=== PATIENT | male | born 1950 | race African-American/Black ===

== ENCOUNTER 2025-05-19 09:06 | Outpatient (CLI) | payer OTHER, MEDICARE, SELFPAY ==
--- NOTE | ~2025-05-19 | PE_ITS ---
EXAMINATION: PET_PETPSMAST_PT DATE: 05/19/2025 11:45 INDICATION: Prostate cancer TECHNIQUE: 3.469 mCi of Illucix Ga-68([id number]) was administered i.v. Low dose computed tomography (CT) images were acquired from the base of the brain to the base of the brain to the proximal thighs for attenuation correction and anatomic localization. Positron emission tomography (PET) images were acquired in the same distribution beginning 75 minutes after injection. Images including fused PET/CT images were reconstructed in axial, coronal, and sagittal planes. Automated exposure control technique was employed. The dose-length product was 1368.24mGy-cm. COMPARISON: None FINDINGS: Head/neck: Typical pattern of symmetric physiologic increased activity in the lacrimal, parotid and submandibular glands as well as along the mucosa of the nasal and oral cavities, pharynx and hypopharynx. No pathologically enlarged cervical lymphadenopathy or suspicious foci of increased uptake in the visualized head or neck. Chest: Mild respiratory motion and mild atelectasis at the bilateral lung bases. No suspicious pulmonary nodules, pneumonia, pulmonary edema or other pulmonary infiltrates or pleural effusion. Heart size is normal. No pericardial effusion. Thoracic aorta is normal in caliber. No pathologically enlarged thoracic lymphadenopathy. Abdomen/pelvis/proximal thighs: Physiologic renal accumulation and excretion of activity in the kidneys, bladder and along portions of ureters. Focal photopenic defect at the lower pole the left kidney suggesting an approximately 1 cm cyst which is difficult to clearly distinguish on the CT images due to mild streak artifact. Prostatomegaly measuring 4.6 x 4.2 cm. There is a large region of marked increased uptake occupying a significant portion of the cephalad half of the prostate with maximal SUV of 93 consistent with primary prostate cancer. Normal degree and slightly heterogenous pattern of increased uptake throughout the liver and spleen without radiologic correlate or dominant PSMA avid lesion. The gallbladder, pancreas and bilateral adrenal glands are normal. Moderate uptake scattered throughout the bowels with typical duodenal and proximal jejunal predominance and without radiologic correlate, also likely physiologic. Normal appendix. Moderate sigmoid and descending colon predominant diverticulosis without adjacent from trace stranding to suggest diverticulitis. No other abnormal foci of increased uptake or pathologically enlarged lymphadenopathy in the abdomen, pelvis or proximal thighs. Small fat-containing right inguinal hernia. Musculoskeletal: Moderate cervical and thoracic and severe lumbar spondylosis. No suspicious lytic, blastic or abnormally PSMA avid bone lesions. IMPRESSION: 1. Large region of marked increased activity in the enlarged prostate consistent with primary prostate cancer. No lesion suspicious for metastatic disease. Reviewed, dictated and finalized at location A. IMPRESSION: 1. Large region of marked increased activity in the enlarged prostate consisten t with primary prostate cancer. No lesion suspicious for metastatic disease.
--- OUTSIDE RECORDS SUMMARY | 2025-05-19 09:18 | XMS_ITS | Encounter Summary ---
Author Organization [facility] Facility Care Team Providers Care Optics Manufacturing Technician Name Role Phone Jhony Leslie MD Primary Care Provider [phone] Jennifer Gamboa Primary Care Provider + Encounter Details Date Type Department Care Team (Latest Contact Info) Description 08/23/2015 Orders Only [facility] ProviderChemo MD [address] [place] [id number] Social History Tobacco Use Types Packs/Day Years Used Date Smoking Tobacco: Never Assessed Sex and Gender Information Value Date Recorded Sex Assigned at Not on file Legal Sex Male 12:26 AM CODING COORDINATOR Gender Identity Not on file Sexual Orientation Not on file documented as of this encounter Plan of Treatment Not on file documented as of this encounter Procedures Procedure Name Priority Date/Time Associated Diagnosis Comments CARDIOLOGY REPORT 11/21/2016 12: 00 AM CODING COORDINATOR documented in this encounter Results * CARDIOLOGY REPORT (11/21/2016 12:00 AM CODING COORDINATOR) Anatomical Region Laterality Modality Other Narrative 11/21/2016 12:00 AM CODING COORDINATOR Ordered by an unspecified provider. Historical Provider [facility] Final Result documented in this encounter Visit Diagnoses Not on filedocumented in this encounter Care Teams Optics Manufacturing Technician Relationship Specialty Start Date End Date Jhony Leslie MD PCP - General 11/23/18 03/30/24 Jennifer Gamboa PA PCP - General Family Medicine 03/31/24 documented as of this encounter
--- OUTSIDE RECORDS SUMMARY | 2025-05-19 09:18 | XMS_ITS | Clinical Summary ---
Author Organization [facility] Address [address] [place] [address] Care Team Providers Care Data Processing Clerk Name Role Phone Jennifer Gamboa Primary Care Provider + Allergies No known active allergies Medications omega-3 fatty acids-fish oil 360-1,200 mg capsule 1,200 mg daily Active cholecalciferol (VITAMIN D-3) 5,000 unit capsule 1 capsule (5,000 Units total) Active ascorbic acid, vitamin C, 500 mg capsule 500 mg Active COQ10, LIPOSOMAL UBIQUINOL, ORAL 200 mg daily A ctive magnesium oxide 200 mg magnesium tablet,chewable 500 mg daily A ctive pen needle, diabetic 31 gauge x 5/16 needle Use to inject 1-4 times daily as directed. 300 each 4 5 Active amLODIPine-benaze priL (LOTREL) 10-40 mg per capsuleIndication s:Primary hypertension Take 1 capsule by mouth daily 90 capsule 1 5 Active dapagliflozin propanediol (Farxiga) 10 mg tabletIndications :Type 2 diabetes mellitus with hyperglycemia, with long-term current use of insulin (HCC) Take 1 tablet (10 mg total) by mouth daily 90 tablet 1 5 Active glimepiride (AMARYL) 4 mg tabletIndications :Type 2 diabetes mellitus with hyperglycemia, with long-term current use of insulin (HCC) TAKE 2 TABLETS BY MOUTH DAILY 180 tablet 1 5 Active insulin degludec (TRESIBA) 100 unit/mL (3 mL) pen for injectionIndicati ons:Type 2 diabetes mellitus with hyperglycemia, with long-term current use of insulin ([facility]) Inject 0.7 mL (70 Units total) under the skin daily 45 mL [address] (PROTONIX) 40 mg EC tabletIndications :Gastroesophageal reflux disease, unspecified whether esophagitis present Take 1 tablet (40 mg total) by mouth nightly 90 tablet 1 5 Active blood-glucose sensor (Dexcom G7 Sensor) deviceIndications :Type 2 diabetes mellitus with hyperglycemia, with long-term current use of insulin ([facility]) Dexcom G7 sensor use for 10 days to monitor blood sugar. 2 each 5 Active blood-glucose,rec eiver,cont (Dexcom G7 Electric Stove Installer) miscIndications:T ype 2 diabetes mellitus with hyperglycemia, with long-term current use of insulin ([facility]) Dexcom G7 structural manager use daily to monitor blood sugar. 1 each 5 Active Active Problems Problem Noted Date Diagnosed Date Severe obesity 10/10/2024 Body mass index (BMI) 45.0-49.9, adult 5 Restrictive lung disease 11/24/2019 Lupus anticoagulant positive 11/24/2019 Chronic obstructive pulmonary disease 03/11/2018 History of nicotine dependence 02/09/2018 History of pulmonary embolism 02/09/2018 Pulmonary hypertension 02/09/2018 Morbid (severe) obesity due to excess calories 0 01/28/2018 RICHARD (obstructive sleep apnea) 01/26/2018 Type 2 diabetes mellitus wit h circulatory disorder, with long-term current use of insulin 08/14/2016 HTN (hypertension) 08/14/2016 Resolved Problems Problem Noted Date Diagnosed Date Resolved Date History of pneumothorax 11/24/2019 10/0 12/2020 Centrilobular emphysema ([facility]) 11/24/2019 09/30/2021 Pleural disease 11/24/2019 09/30/2021 Vertigo 03/31/2019 06/17/2021 Allergic rhinitis due to pollen 02/09/2018 09/30/2021 Chronic respiratory failure with hypoxia ([facility]) 02/09/2018 09/30/2021 Exertional dyspnea 02/09/2018 1 Body mass index (BMI) of 45. 0-49.9 in adult ([facility]) 01/28/2018 12/30/2021 Encounters Date Type Department Care Team Description 05/02/2025 Telephone [facility] Family Medicine at [address] [place] [phone] Jennifer Gamboa PA re: Urology referral 05/01/2025 3:45 PM CDT Office Visit [facility] at [address] [phone] Jennifer Gamboa PA Medicare annual wellness visit, subsequent (Primary Dx); Type 2 diabetes mellitus with hyperglycemia, with long-term current use of insulin (HCC); Adenocarcinoma of prostate (HCC); Essential hypertension; Gastroesophageal reflux disease, unspecified whether esophagitis present; Morbid obesity with BMI of 50.0-59.9, adult (HCC) 04/25/2025 Results Follow-Up [facility] at [address] [phone] Jennifer Gamboa PA Albumin Creatinine Ratio, Urine, CBC with auto differential, Comprehensive metabolic panel, Additional followed-up results: 3 04/24/2025 12:00 PM CDT Lab [facility] [address] [place] [id number] Type 2 diabetes mellitus without complication, with long-term current use of insulin (HCC); Type 2 diabetes mellitus with hyperglycemia, with long-term current use of insulin (HCC); Elevated PSA 04/12/2025 Telephone [facility] at [address] [place] [phone] Jennifer Gamboa PA Medical Question/Miscellaneou s from Last 3 Months Immunizations Immunization Administration Dates Next Due Influenza, Trivalent, High D ose, Split, Preservative Free, Intramuscular 07/29/2018 Influenza, Unspecified 05/15/2024(Deferr ed: Patient Refused),06/14/2023(Deferred: Patient Refused),06/14/2023(Deferred: Patient Refused),06/14/2023(Deferred: Patient Refused),07/03/2022(Deferred: Patient Refused),06/14/2022(Deferred: Patient Refused),06/14/2022(Deferred: Patient Refused),09/30/2021(Deferred: Patient Refused),06/14/2021(Deferred: Patient Refused) Tackle Grab (J&J) SARS-CoV-2 Vaccination 11/18/2020, 11/18/2020 Moderna Sars-cov-2 Monovalen t Booster Vaccination .25 Ml dose (12+ YRS) 08/31/2021 Pfizer Sars-Cov-2 Bivalent V accination (12+ YRS) 07/10/2022 Pneumococcal Conjugate Pcv20 03/31/2024( Deferred: Patient Refused),12/31/2023(Deferred: Patient Refused),11/26/2023(Deferred: Patient Refused) Tdap 05/15/2022 Surgical History Surgery Date Site/Laterality Comments HEMORRHOID SURGERY THORACOTOMY Medical History Medical History Date Comments Hypertension COPD (chronic obstructive pulmonary disease) Diabetes mellitus (HCC) Hypogonadism in male Family History Relation Name Status Comments Father Mother Social History Tobacco Use Types Packs/Day Years Used Date Smoking Tobacco: Former Cigarettes Q uit: 1997 Smokeless Tobacco: Never Tobacco Cessation:Counseling Given: Not Answered Alcohol Use Standard Drinks/Week Comments Yes 0 (1 standard drink = 0.6 oz pur e alcohol) AUDIT-C Answer Date Recorded Q1: How often do you have a drink containing alc ohol? Monthly or less 10/10/2024 Q2: How many drinks containi ng alcohol do you have on a typical day when you are drinking? 1 or 2 10/10/2024 Frequency of Binge Drinking Not on file 09/15 PHQ-2 Answer Date Recorded PHQ-2 Total Score (If total score is 3 or more points, staff should administer the PHQ-9) 0 05/01/2025 Sex and Gender Information Value Date Recorded Sex Assigned at Not on file Legal Sex Male 12:26 AM TECHNOLOGY ADMINISTRATOR Gender Identity Not on file Sexual Orientation Not on file Obstetrics History Last Filed Vital Signs Vital Sign Reading Time Taken Comments Blood Pressure 126/80 05/01/2025 3:33 PM CDT Pulse 70 05/01/2025 3:33 PM CDT Temperature 37.2 C (98.9 F) 10/10/2024 3:49 PM TECHNOLOGY ADMINISTRATOR Respiratory Rate 16 05/01/2025 3:33 PM CDT Oxygen Saturation 94% 05/01/2025 3:33 PM CDT Inhaled Oxygen Concentration - - Weight 142.9 kg (315 lb) 05/01/2025 3:33 PM CDT Height 177.8 cm (5' 10) 05/01/2025 3:33 PM CDT Body Mass Index 45.2 05/01/2025 3:33 PM CDT Plan of Treatment Health Maintenance Due Date Last Done Comments Hepatitis C Screening 1950 Hepatitis B Screening 1968 Zoster Vaccine (1 of 2) 2000 Abdominal Aortic Aneurysm (AAA) Screen 2015 Foot Exam 10/02/2023 10/02/2022, 09/30/2021 Covid-19 Vaccine ( season) 2024 07/10/2022, 08/31/2021, 11/18/2020, Additional history exists Dilated Eye Exam 10/26/2024 10/26/2023, 04/2021, 02/19/2021 Influenza Vaccine (#1) 2025 07/29/2018 Lipid Panel 07/06/2025 07/06/2024, 11/2022, 10/23/2021, Additional history exists Pneumococcal vaccine 65+ (1 of 2 - PCV) 10/10/2025 Postponed from 1969 (Patient declined, but will receive in the future) Hemoglobin A1C 11/01/2025 05/01/2025, 09/15, 07/06/2024, Additional history exists Albumin Creatinine Ratio, Urine 04/24/2026 04/24/2025, 07/17/2023, 10/23/2021 eGFR 04/24/2026 04/24/2025, 06/15, 07/17/2023, Additional history exists Depression Screening 05/01/2026 05/01/2025, 10/10/2024, 11/26/2023, Additional history exists Fall Risk Assessment 05/01/2026 05/01/2025, 11/26/2023, 08/03/2023, Additional history exists Well Visit 65+ 05/01/2026 05/01/2025, 11/12, 07/03/2022 Prostate Cancer Screening-PSA 04/24/2027 04/24/2025, 07/17/2023, 10/23/2021, Additional history exists DTaP/Tdap/Td Vaccine (2 - Td or Tdap) 05/15/2032 05/15/2022 Colon Cancer Screening-Colonoscopy 07/21/2033 07/21/2023, 09/14/2013 Colon Cancer Screening-CT Colonography Discontinued 07/21/2023, 09/14/2013 Colon Cancer Screening-DNA Stool Discontinued 07/21/2023, 09/14/2013 Colon Cancer Screening-FIT Discontinued 07/21/2023, Colon Cancer Screening-Sigmoidoscopy Discontinued 07/21/2023, 09/14/2013 Procedures Procedure Name Priority Date/Time Associated Diagnosis Comments POCT HEMOGLOBIN A1C Routine 05/01/2025 3 :45 PM CDT Type 2 diabetes mellitus with hyperglycemia, with long-term current use of insulin (HCC) EGFR Routine 04/24/2025 11:59 AM CDT Type 2 diabetes mellitus with hyperglycemia, with long-term current use of insulin (HCC) DIFFERENTIAL AUTO Routine 04/24/2025 11: 59 AM CDT Type 2 diabetes mellitus with hyperglycemia, with long-term current use of insulin (HCC) PSA SCREEN Routine 04/24/2025 11:59 AM CDT Elevated PSA COMPREHENSIVE METABOLIC PANEL Routine 04/24/2025 11:59 AM CDT Type 2 diabetes mellitus with hyperglycemia, with long-term current use of insulin (HCC) CBC WITH AUTO DIFFERENTIAL Routine 04/24/2025 11:59 AM CDT Type 2 diabetes mellitus with hyperglycemia, with long-term current use of insulin (HCC) ALBUMIN CREATININE RATIO, URINE Routine 04/24/2025 11:56 AM CDT Type 2 diabetes mellitus without complication, with long-term current use of insulin (HCC) LIPID PANEL Routine 07/06/2024 9:58 AM CDT Primary hypertension HM DIABETES EYE EXAM Routine 10/26/2023 COLONOSCOPY Routine 07/21/2023 from Last 3 Months or Most Recently Relevant to Health Maintenance Results * (ABNORMAL) POCT hemoglobin A1c (05/01/2025 3:45 PM CDT) Hemoglobin A1C, POC 9.3(A) 4.0 - 5.6 % Blood 05/01/2025 3:45 PM CDT us Jennifer Leyva POINT OF CARE TEST ORDER LORENA Final Result * eGFR (04/24/2025 11:59 AM CDT) eGFR 76 >=60 mL/min/1. 73 m2 Comment: Interpretive Data Reference Interval Normal >/= 90 mL/min/1.73m2 Mildly decreased* 60 - 89 mL/min/1.73m2 Mildly to moderately decreased 45 - 59 mL/min/1.73m2 Moderately to severely decreased 30 - 44 mL/min/1.73m2 Severely decreased 15 - 29 mL/min/1.73m2 Kidney Failure < 15 mL/min/1.73m2 *Relative to young adult level Estimated glomerular filtration rate is determined by the 2020 CKD-EPI equation recommended by the National Kidney Foundation (A Unifying Approach to GFR Estimation: Recommendations of the NKF-ASK Task Force on Reassessing the Inclusion of Race in Diagnosing Kidney Disease, JASN 2020). The CKD-EPI equation should not be used for patients with unstable renal function and has not been validated in children and those over 70. Current interpretive data was last reviewed 2021. Blood 04/24/2025 11:5 9 AM CDT 04/24/2025 12:03 PM CDT us Jennifer Leyva LAB BLOOD ORDERABLES Fin al Result [facility] [address] [facility] Department [place] [address] * Differential, auto (04/24/2025 11:59 AM CDT) Neutrophil abs 3.59 1.50 - 6.50 K/cumm Imm gran abs 0.02 0.00 - 0.10 K/cumm [facility] Lymphocyte abs 2.36 0.80 - 3.30 K/cumm [facility] Monocyte abs 0.61 0.20 - 0.80 K/cumm [facility] Eosinophil abs 0.21 0.00 - 0.50 K/cumm [facility] Basophil abs 0.05 0.00 - 0.10 K/cumm [facility] Neutrophil pct 52.5 % [facility] Comment: Interpretive Data Percent cell count reference ranges are not reported, since discordance with absolute values may lead to misinterpretation of CBC data. Current Interpretive Data was last revised on 2017. Imm gran pct 0.3 % [facility] Comment: Interpretive Data Percent cell count reference ranges are not reported, since discordance with absolute values may lead to misinterpretation of CBC data. Current Interpretive Data was last revised on 2017. Lymphocyte pct 34.5 % [facility] Comment: Interpretive Data Percent cell count reference ranges are not reported, since discordance with absolute values may lead to misinterpretation of CBC data. Current Interpretive Data was last revised on 2017. Monocyte pct 8.9 % [facility] Comment: Interpretive Data Percent cell count reference ranges are not reported, since discordance with absolute values may lead to misinterpretation of CBC data. Current Interpretive Data was last revised on 2017. Eosinophil pct 3.1 % [facility] Comment: Interpretive Data Percent cell count reference ranges are not reported, since discordance with absolute values may lead to misinterpretation of CBC data. Current Interpretive Data was last revised on 2017. Basophil pct 0.7 % [facility] Comment: Interpretive Data Percent cell count reference ranges are not reported, since discordance with absolute values may lead to misinterpretation of CBC data. Current Interpretive Data was last revised on 2017. Blood 04/24/2025 11:5 9 AM CDT 04/24/2025 12:03 PM CDT Jennifer Leyva LAB BLOOD ORDERABLES Fin al Result Performing Organization Address [facility] de Phone Number [facility] [address] [address] * (ABNORMAL) PSA screen (04/24/2025 11:59 AM CDT) Pathologist [facility] PSA-Total 112.00(H) <=6.20 ng/mL Comment: Interpretive Data AGE SEX REFERENCE INTERVAL 0 minutes-150 years Female None 0 minutes-49 years Male None 50-59 years Male 0-3.90 60-69 years Male 0-5.40 70-79 years Male 0-6.20 80-150 years Male 0-6.20 The Jorje PSA Total assay procedure was used. Results from different manufacturers or methods may not be comparable. Serial testing should be performed using the same method. Current interpretive data last revised 22. Blood 04/24/2025 11:5 9 AM CDT 04/24/2025 12:03 PM CDT Jennifer Leyva LAB BLOOD ORDERABLES Fin al Result Performing Organization Address [facility] de Phone Number MA[address] [address] * CBC with auto differential (04/24/2025 11:59 AM CDT) Pathologist [facility] WBC 6.84 3.80 - 9.90 K/cumm Hgb 13.9 13.0 - 17.5 g/dL [facility] Hct 42.7 38.9 - 50.3 % [facility] Plt 166 150 - 400 K/cumm [facility] MPV 11.5 9.1 - 12.3 fL [facility] RBC 4.83 4.30 - 5.80 M/cumm [facility] MCV 88.4 81.3 - 96.4 fL [facility] MCH 28.8 27.1 - 33.3 pg [facility] MCHC 32.6 32.3 - 35.7 g/dL [facility] RDW CV 14.4 11.1 - 14.9 % [facility] RDW SD 46.5 35.7 - 48.1 fL [facility] NRBC abs 0.00 0.00 - 0.01 K/cumm [facility] Blood 04/24/2025 11:5 9 AM CDT 04/24/2025 12:03 PM CDT us Jennifer Leyva LAB BLOOD ORDERABLES Fin al Result [facility] [address] [facility] Department of Laboratories [place], [place] [id number] * (ABNORMAL) Comprehensive metabolic panel (04/24/2025 11:59 AM CDT) Sodium 141 135 - 145 mmol/L Potassium, pl 3.8 3.3 - 4.9 mmol/L [facility] Chloride 108 97 - 110 mmol/L [facility] CO2 23 22 - 32 mmol/L [facility] Anion gap 10 2 - 15 mmol/L [facility] BUN 10 6 - 25 mg/dL [facility] Creatinine 1.03 0.80 - 1.30 mg/dL [facility] Glucose 229(H) 70 - 199 mg/dL [facility] Comment: Interpretive Data Fasting glucose >/= 126 mg/dl is diagnostic for diabetes. Fasting is defined as no caloric intake for at least 8 hours. Fasting glucose between 100 mg/dl to 125 mg/dl is diagnostic of prediabetes. In a patient with classic symptoms of hyperglycemia or hyperglycemic crisis, a random glucose >/= 200 mg/dl is diagnostic for diabetes. In the absence of unequivocal hyperglycemia, results should be confirmed by repeat testing. The classification and Diagnosis of Diabetes Diabetes Care 202; 46: S19-S40. Current interpretive data was last revised 2022. Calcium 8.4(L) 8.5 - 10.3 mg/dL [facility] Bilirubin, total 0.6 0.1 - 1.2 mg/dL [facility] Protein, pl 6.9 6.5 - 8.5 g/dL [facility] Albumin 3.7 3.5 - 5.0 g/dL [facility] Alk phos 85 40 - 130 Units/L [facility] ALT 15 7 - 55 Units/L [facility] AST 17 10 - 50 Units/L [facility] Blood 04/24/2025 11:5 9 AM CDT 04/24/2025 12:03 PM CDT Narrative [facility] - 04/24/2025 1:46 PM CDT Has the patient fasted?->Yes Jennifer Leyva LAB BLOOD ORDERABLES Fin al Result Performing Organization Address [facility] de Phone Number [address] [place] [address] * (ABNORMAL) Albumin Creatinine Ratio, Urine (04/24/2025 11:56 AM CDT) Albumin Ur 519.0 mg/L Comment: Interpretive Data No reference range established. Current interpretive data was last revised 2019. Creatinine Ur 139.0 mg/dL [facility] Comment: Interpretive Data No reference range established. Current interpretive data was last revised 2019. Albumin Creatinine Ratio, Ur 373(H) 1 - 29 mg/g [facility] Urine 04/24/2025 11:5 6 AM CDT 04/24/2025 12:25 PM CDT Jennifer Leyva LAB URINE ORDERABLES Fin al Result Performing Organization Address [facility] Co de Phone Number [address] [place] [address] * Lipid panel (07/06/2024 9:58 AM CDT) Cholesterol 161 30 - 199 mg/dL Comment: Interpretive Data Ages < or = 19 years Acceptable: <170 mg/dL Borderline high: 170-199 mg/dL High: >or= 200 mg/dL Ages > or = 20 years Desirable: <200 mg/dL Borderline high: 200-239 mg/dL High: >or= 240 mg/dL Literature References: 1. Expert Panel on Integrated Guidelines for Cardiovascular Health and Risk Reduction in Children and Adolescents. Pediatrics 2011;128:S213 2. NCEP Expert Panel. Circulation 2004;110:227 Current Interpretive Data was last revised on 2018. Triglycerides 71 <=149 mg/dL [facility] Comment: Interpretive Data Ages < or = 9 years Acceptable: <75 mg/dL Borderline high: 75-99 mg/dL High: >or= 100 mg/dL Ages 10 to 20 years Acceptable: <90 mg/dL Borderline high: 90-129 mg/dL High: >or= 130 mg/dL Ages > or = 20 years Desirable: <150 mg/dL Borderline high: 150-199 mg/dL High: 200-499 mg/dL Very high: >or= 499 mg/dL Literature References: 1. Expert Panel on Integrated Guidelines for Cardiovascular Health and Risk Reduction in Children and Adolescents. Pediatrics 2011;128:S213 2. NCEP Expert Panel. Circulation 2004;110:227 Current Interpretive Data was last revised on 2018. HDL 45 >=40 mg/dL [facility] Comment: Interpretive Data Ages < or = 19 years Acceptable: >45 mg/dL Borderline low: 40-45 mg/dL Low: <40 mg/dL Ages > or = 20 years Desirable: >or= 60 mg/dL Low: <40 mg/dL Literature References: 1. Expert Panel on Integrated Guidelines for Cardiovascular Health and Risk Reduction in Children and Adolescents. Pediatrics 2011;128:S213 2. NCEP Expert Panel. Circulation 2004;110:227 Current Interpretive Data was last revised on 2018. LDL, calculated 102 <=129 mg/dL [facility] Comment: Interpretive Data Ages < or = 19 years Acceptable: <110 mg/dL Borderline high: 110-129 mg/dL High: >or= 130 mg/dL Ages > or = 20 years Optimal: <100 mg/dL Near optimal: 100-129 mg/dL Borderline high: 130-159 mg/dL High: >160 mg/dL Calculated using the Forde LDL-C estimating equation. This equation was implemented on 2024. Prior to this date LDL-C was estimated using the Friedewald equation. Literature References: 1. Expert Panel on Integrated Guidelines for Cardiovascular Health and Risk Reduction in Children and Adolescents. Pediatrics 2011;128:S213 2. NCEP Expert Panel. Circulation 2004;110:227 3. Maurisio Flores et al. PATSY Cardiol. 2019January 12;5(5):540-548. doi: 10.1001/[email or web address] Current Interpretive Data was last revised on 2024. Non-HDL Cholesterol 116 mg/dL [facility] Comment: Interpretive Data Ages < or = 19 years Acceptable: <120 mg/dL Borderline high: 120-144 mg/dL High: >145 mg/dL Ages > or = 20 years When triglycerides are >200 mg/dL, Non-HDL cholesterol is a secondary target of therapy with treatment goals that are 30 mg/dL greater than the LDL cholesterol target. Literature References: 1. Expert Panel on Integrated Guidelines for Cardiovascular Health and Risk Reduction in Children and Adolescents. Pediatrics 2011;128:S213 2. NCEP Expert Panel. Circulation 2004;110:227 Current Interpretive Data was last revised on 2018. Chol/HDL ratio 4 [facility] Blood 07/06/2024 9:58 AM CDT 07/06/2024 10:36 AM CDT Narrative [facility] - 07/06/2024 11:11 AM CDT Has the patient been fasting for 8 hours or more?->Yes Jennifer Leyva LAB BLOOD ORDERABLES Fin al Result [facility] [address] [facility] Department [place] [address] * (ABNORMAL) DIABETES EYE EXAM (10/26/2023) SCRIBED DIABETIC DILATED EYE EXAM Abnormal Historical Provider HEALTH MAINTENANCE Final Result * Colonoscopy (07/21/2023) Anatomical Region Laterality Modality Other Historical Provider ENDOSCOPY PROCEDURES Kaleigh l Result from Last 3 Months or Most Recently Relevant to Health Maintenance Insurance [employer] [facility] [id number] Care Teams Data Processing Clerk Relationship Specialty Start Date End Date Jennifer Gamboa PA PCP - General Family Medicine 03/31/24
--- OUTSIDE RECORDS SUMMARY | 2025-05-19 09:18 | XMS_ITS | Encounter Summary ---
Author Organization [facility] Care Team Providers Care Straight Line Press Setter Name Role Phone Jhony Leslie MD Primary Care Provider [phone] Jennifer Gamboa Primary Care Provider + Encounter Details Date Type Department Care Team (Latest Contact Info) Description 11/12/2018 Orders Only [facility]INCONV Provider, MD Chemo [address] [place] [id number] Social History Tobacco Use Types Packs/Day Years Used Date Smoking Tobacco: Never Assessed Sex and Gender Information Value Date Recorded Sex Assigned at Not on file Legal Sex Male 12:26 AM MENTAL HEALTH AIDES TEACHER Gender Identity Not on file Sexual Orientation Not on file documented as of this encounter Plan of Treatment Not on file documented as of this encounter Procedures Procedure Name Priority Date/Time Associated Diagnosis Comments COLONOSCOPY - SCAN 11/12/2018 12 :00 AM MENTAL HEALTH AIDES TEACHER documented in this encounter Results * COLONOSCOPY - SCAN (11/12/2018 12:00 AM MENTAL HEALTH AIDES TEACHER) Narrative 11/12/2018 12:00 AM MENTAL HEALTH AIDES TEACHER Ordered by an unspecified provider. Historical Provider Final Res ult documented in this encounter Visit Diagnoses Not on filedocumented in this encounter Care Teams Straight Line Press Setter Relationship Specialty Start Date End Date Jhony Leslie MD PCP - General 11/23/18 03/30/24 Jennifer Gamboa PA PCP - General Family Medicine 03/31/24 documented as of this encounter
--- OUTSIDE RECORDS SUMMARY | 2025-05-19 09:18 | XMS_ITS | Encounter Summary ---
Author Organization [facility] Healthcare Address [address] [place] [address] Care Team Providers Care Pillowcase Turner Name Role Phone Jennifer Gamboa Primary Care Provider + Encounter Details Date Type Department Care Team (Late st Contact Info) Description 04/25/2025 Results Follow-Up [facility] Family Medicine at [address] [place] [address] Jennifer Gamboa PA [address] [place] [address] [address] [place], [place] [id number] Albumin Creatinine Ratio, Urine, CBC with auto differential, Comprehensive metabolic panel, Additional followed-up results: 3 Social History Tobacco Use Types Packs/Day Years Used Date Smoking Tobacco: Former Cigarettes Q uit: 1997 Smokeless Tobacco: Never Alcohol Use Standard Drinks/Week Comments Yes 0 [...] points, staff should administer the PHQ-9) 0 11/23/2024 Sex and Gender Information Value Date Recorded Sex Assigned at Not on file 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
--- OUTSIDE RECORDS SUMMARY | 2025-05-19 09:18 | XMS_ITS | Encounter Summary ---
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 Historical Provider [facility] Final Result documented in this encounter Visit Diagnoses Not on filedocumented in this encounter Care Teams Retirement Officer Relationship Specialty Start Date End Date Jhony Leslie MD PCP - General 11/23/18 03/30/24 Jennifer Gamboa PA PCP - General Family Medicine 03/31/24 documented as of this encounter
== END 2025-05-19 09:07 | disposition home or self-care (01) ==
PROVIDERS: Visit Provider Urology
DX: C61 Malignant neoplasm of prostate (principal)
CPT/HCPCS: 78815; A9596